=== PATIENT | male | born 1995 | race Caucasian/White ===

== ENCOUNTER 2025-04-11 08:36 | Day surgery (SDC) | payer OTHER, SELFPAY ==
--- NOTE | 2025-04-11 | DI.RAD.S_ITS ---
PROCEDURE: XR ANKLE LT MIN 3V INDICATIONS: LEFT ANKLE ORIF TECHNIQUE: 3 views of the ankle were acquired. COMPARISON: [facility], RG, ANKLE MIN 3VW (LT), 04/08/2025, 21:02. Outside Facility, CR, XR ANKLE LT MIN 3V, 04/08/2025, 21:02. FINDINGS AND IMPRESSION: Intraoperative fluoroscopic images were obtained for ankle fracture fixation in the distal tibia and fibula. Please see operative note for full details. Dictated by: Maverick King M.D. on 04/11/2025 at 13:37 Approved by: Maverick King M.D. on 04/11/2025 at 13:38
[2025-04-11 09:31] VITALS: BMI 26.6
[2025-04-11 09:55] VITALS: BP 140/89; PULSE 88; RESP 16; TEMP 37; O2SAT 98
[2025-04-11] MEDS: LACTATED RINGERS 1,000 ML 42 ML IV (10:17)
[2025-04-11] MEDS: FAMOTIDINE 20 MG/2 ML VIAL IV (10:18)
[2025-04-11] MEDS: ACETAMINOPHEN IV 1,000 MG/100 ML VIAL 400 MG IV (10:18)
--- NOTE | 2025-04-11 10:56 | PM.HP.1 ---
History of Present Illness History of Present Illness Date Patient Seen: 04/11/25 Time Patient Seen: 10:56 Date of Onset of Symptoms: 04/08/25 Chief complaint: Left ORIF Ankle Fracture Narrative: The patient is a 30-year-old gentleman slipped on wet grass and twisted his left ankle sustaining a trimalleolar ankle fracture dislocation with syndesmosis disruption. He was seen at an outside hospital where x-rays were taken in the splint was taken. Is indicated for open reduction internal fixation due to his unstable ankle fracture pattern. He denies any other medical problems. He denies any allergies to medications. Does note his stomach has been upset with the pain medications. Denies any fevers chills or loss of consciousness. He has been nonweightbearing he has crutches. He denies any numbness or tingling. Meds Home Medications and Allergies Allergies Allergy/AdvReac Type Severity Reaction Status Date / Time No Known Drug Allergies Allergy Verified 04/11/25 09:57 Review of Systems Review of Systems ROS: Yes All systems reviewed with the patient and are negative except as otherwise documented Exam Vital Signs (past 8 hours): - 04/11/25 09:55 Temperature 98.6 F Pulse Rate 88 Respiratory Rate 16 Blood Pressure 140/89 Pulse Oximetry 98 Oxygen Delivery Method Room Air Oxygen Delivery Method Room Air Narrative Exam Narrative: Alert oriented male in no acute distress. HEENT exam normocephalic atraumatic Respiratory exam lungs clear to auscultation bilaterally Heart regular rate and rhythm Left lower extremity and a splint this is removed. There was moderate swelling of the ankle and ecchymosis. There are no open wounds there was no erythema. Calf is soft. Demonstrates dorsiflexion plantar flexion limited range of motion secondary to known fracture. Demonstrates EHL function. Palpable dorsalis pedis pulse. Sensation grossly intact sural saphenous superficial and deep peroneal nerve distributions. Assessment & Plan Assessment and plan (1) Closed trimalleolar fracture of left ankle: Qualifiers: Encounter type: initial encounter Qualified Code(s): S82.852A - Displaced trimalleolar fracture of left lower leg, initial encounter for closed fracture Status: Acute Plan The patient has a unstable ankle fracture pattern he is indicated for surgery the open reduction internal fixation. Plan is open reduction internal fixation left ankle fracture. Risks and benefits of surgery were discussed. The patient has elected to proceed. Postoperative DVT prophylaxis will be aspirin 325 mg daily for 6 weeks. Time-Based Coding :: [TOTAL MINUTES] spent with patient and on the chart (including review of chart, obtaining history, exam, reviewing outside data, placing orders, documenting exam and treatment plan, and counseling patient) on [DATE]. Quality VTE Deep Vein Thrombosis/Pulmonary Embolism Present on Admission: No
--- NOTE | 2025-04-11 11:15 | SUR.PREOP ---
Block time out 10:52. Block start time 10:56. Monitoring initiated and maintained throughout procedure. Oxygen and medications given per anesthesiologist instructions. Patient remained stable throughout procedure, no adverse reactions noted. Block end time 11:03.
[2025-04-11] MEDS: CEFAZOLIN 2 GM/100 ML PREMIX 100 ML IV (11:25)
--- NOTE | 2025-04-11 11:53 | SUR.OPER ---
Supine on padded OR bed, head on pillow, arms secured on padded arm boards at <90 degrees abduction, legs uncrossed, safety belt at thigh, MULTIPLE FLANNELS TAPED UNDER OPERATIVE LEG FOR BUMP
--- NOTE | 2025-04-11 12:02 | SUR.OPER ---
Supine on padded OR bed, head on pillow, arms secured on padded arm boards at <90 degrees abduction, legs uncrossed, safety belt at thigh, MULTIPLE FLANNEL BLANKETS TAPED UNDER OPERATIVE LEG FOR BUMP, RIGHT LEG TAPED
[2025-04-11] MEDS: BUPIVACAINE 0.25% W/ EPI 30 ML VIAL 60 ML INJ (13:20)
[2025-04-11 13:31] VITALS: BP 123/79; PULSE 82; RESP 16; TEMP 36.4; O2SAT 98
[2025-04-11 13:37] VITALS: BP 129/80; PULSE 77; RESP 16; TEMP 36.4; O2SAT 99
--- NOTE | 2025-04-11 13:40 | P.OP_ITS ---
Operative Date/Time/Diagnoses Date of procedure: 04/11/25 Time of procedure: 12:30 Pre-op diagnosis: Trimalleolar ankle fracture left, Acute syndesmosis disruption ankle joint left Post-op diagnosis: same Procedure & Clinicians Procedure: Open reduction internal fixation trimalleolar ankle fracture without posterior lip CPT code 75640, left Open reduction internal fixation syndesmosis left ankle CPT code 63217 Same procedure(s) as scheduled: Yes Indications: The patient is a 30-year-old gentleman that slipped on wet grass rolling his an kle sustained a unstable trimalleolar ankle fracture with a syndesmosis disruption and a small posterior malleolar fragment. He was indicated for open reduction internal fixation for his unstable ankle fracture. He does not have any contraindications to surgery. The risks and benefits of the procedure have been discussed with the patient and given the opportunity to ask questions. The risks of surgery include but are not limited to infection, malunion, nonunion, persistence of pain, damage to nerves and blood vessels, posttraumatic arthritis, DVT, PE, cardiopulmonary complications and . The patient expressed a thorough understanding of the risks and benefits of surgery and has elected to proceed. Consent was signed. Surgeon: Bernice Ackerman Click Yes if Unassisted: Yes Anesthesia Type: General Operative Notes Findings: Small distal medial malleolar fracture stabilized with K-wire cerclage construct. Oblique fibula fracture at the level of the syndesmosis was reduced and fixed with a 7 hole 1/3 tubular plate from the Arthrex set. Syndesmosis was unstable and posterior malleolus fracture small so posterior malleolus fracture was treated closed and syndesmosis was reduced and fixed with a suture button device from the Arthrex set. Ankle was stable to stress and mortise symmetric completion of surgery. Closure Type: primary Specimen(s): none sent Prosthetic devices, grafts, tissues, transplants, or devices: Arthrex 7 hole 1/3 tubular plate 3.5 cortical screws proximally and 3.5 locking screws distally Arthrex tightrope for syndesmosis fixation 2x 1.6 K-wires and 20 gauge wire and a 24 mm 4.0 cancellous screw and washer used for the medial malleolar cerclage construct Applied: other (Splint) Estimated Blood Loss (mL): 30 Blood products transfused: none Tourniquet time (min): 65 Procedure in detail: The patient is seen in the preoperative area the site of surgery was marked informed consent confirmed. This was the left ankle. The patient underwent a regional block with the anesthesia team for postoperative pain control. The patient was brought back to the operating room by the anesthesia team and positioned supine on operative table. A well-padded thigh tourniquet was placed on the left thigh. The left lower extremity was prepped and draped in the standard sterile fashion a formal time-out procedure performed confirming the patient's side and site of surgery and presence of informed consent. Implants were in the room and accounted for. Attention was turned to the left leg the Esmarch was used for exsanguination and the tourniquet on the thigh elevated to 250 mm of mercury. Incision was marked along the posterior border of the fibula and taken down through the skin subcutaneous tissues. The posterolateral approach to the fibula was taken the peroneal tendons were reflected posteriorly. The oblique fracture was identified the fracture hematoma was cleaned and the wound and fracture were irrigated. Reduction clamps were used to obtain length alignment and rotation. Then a K-wire was placed for temporary fixation. A 7 hole plate 1/3 tubular plate from the Arthrex set was then fashioned posterolaterally and secured with BB tacks. This was then secured in a antiglide type fashion with a cortical screw at the apex of the fibula fracture this brought the plate down to bone. This was then fixed proximally with a additional cortical screws and distally with locking screws to reduce prominence. Next attention was turned medially to the medial malleolus fracture a separate incision was made over the medial malleolus and dissection taken down to the level of the bone the periosteum was debrided from the fracture site and the fracture hematoma cleansed. Pointed reduction clamp was used to reduce this fracture and it was checked on fluoroscopy for anatomic alignment next 21.6 K- wires were placed across the fragment. Since this was a very distal fracture the construct selected was a cerclage wire construct for other than screws alone. So a 20 gauge wire was opened up a drill hole for a post screw was then placed and a 24 mm cancellous screw and washer were placed the left a few mm proud so that the cerclage wire could be wrapped around this was then secured and sequentially tightened using the heavy needle drivers creating the cerclage construct. Once this was complete the K-wires were bent and tamped down and the final wires cut and carefully tamped to avoid prominence. Then attention was returned to the syndesmosis The syndesmosis was unstable and since the posterior malleolus fracture was very small but has a circuit for syndesmosis instability was elected to fix the syndesmosis as the posterior lip fracture was too small for fixation. Therefore the syndesmosis was reduced with thumb pressure and the syndesmosis tightrope drilled across from the fibula to the tibia the tightrope was deployed and secured in the standard fashion. Following placement the last remaining K-wire from the fibula was removed and final x-rays in AP mortise and lateral planes were taken demonstrating appropriate hardware placement and alignment and mortise stability. At this point the tourniquet was released hemostasis was achieved in the medial and lateral wounds were closed with 2-0 Vicryl 4-0 Monocryl and 3-0 nylon suture. 20 cc of 0.25% Marcaine with epinephrine was injected for local anesthesia. Sterile dressings were placed with Xeroform gauze Webril bulky Foster cotton and a stirrup and U splint in neutral position. The patient was awoken from anesthesia and taken to the recovery unit in good condition there were no immediate complications from this procedure. All counts were correct. Complications: none Post-operative Condition: stable Disposition: PACU Plan for aftercare: Nonweightbearing or toe-touch until follow up. Keep splint clean dry and intact . Elevate heart level or above as much as possible for the 1st 2 weeks to aid with healing. Aspirin 325 mg daily for DVT prophylaxis x6 weeks. At 1st postop we will have suture removal and go into a boot and may start partial weight- bearing 25-50% but do not advanced beyond until 2nd postop appointment. Full recovery and healing can take 6-12 months. After fractures are healed if hardware is painful or irritating this can be removed.
[2025-04-11 13:42] VITALS: BP 125/80; PULSE 82; RESP 16; TEMP 36.4; O2SAT 96
[2025-04-11 13:55] VITALS: BP 144/88; PULSE 70; RESP 15; TEMP 36.4; O2SAT 98
[2025-04-11 14:30] VITALS: BP 139/75; PULSE 70; RESP 15; TEMP 36.3; O2SAT 99
== END 2025-04-11 14:47 | disposition home or self-care (01) ==
PROVIDERS: Referring Provider Orthopaedic Surgery Foot and Ankle Surgery; Visit Provider Orthopaedic Surgery Foot and Ankle Surgery
PROC: (CPT 27822; principal; 2025-04-11 10:45)
DX: S82.852A Displaced trimalleolar fracture of left lower leg, initial encounter for closed fracture (principal); S93.439A Sprain of tibiofibular ligament of unspecified ankle, initial encounter; W01.0XXA Fall on same level from slipping, tripping and stumbling without subsequent striking against object, initial encounter; G89.18 Other acute postprocedural pain
CPT/HCPCS: 27822; 27829; 64450; 73610; 76000; C1713; J0131; J0690; J1100; J1885; J2250; J2405; J2704; J3010; J3490